=== PATIENT | female | born 1995 | race Two or more races ===

== ENCOUNTER 2023-08-08 15:17 | Emergency (ER) | payer MEDICAID ==
[2023-08-08 16:19] LABS: Basophils # (auto) 0 10 ^3/uL (0-0.2); Basophils % (auto) 0.1 % (0.0-2.0); Eosinophils # (auto) 0.1 10 ^3/uL (0-0.8); Hematocrit 35.2 % (36.0-46.0); Lymphocytes % (auto) 17.4 % (10.0-50.0); Mean Corpuscular Hemoglobin 30.9 pg (28.0-32.0); Mean Corpuscular Hgb Conc. 34.2 g/dL (32.0-36.0); Mean Corpuscular Volume 90.4 fL (80.0-100.0); Monocytes # (auto) 0.5 10 ^3/uL (0-1.3); Monocytes % (auto) 4.5 % (0.0-12.0); Neutrophils # (auto) 8.9 10 ^3/uL (1.6-8.6); Red Blood Cells 3.89 10^6/uL (4.0-5.20); Red Cell Distribution Width 13.4 % (11.8-14.3); White Blood Cell 11.6 10^3/uL (4.4-10.8)
[2023-08-08 16:37] LABS: Alkaline Phosphatase 65 U/L (46-116); Anion Gap 5 (5-15); Aspartate Aminotransferase < 8 U/L (13-40); Calcium 9.1 mg/dL (8.7-10.4); Carbon Dioxide 24 mmol/L (20-30); Chloride 107 mmol/L (98-107); Glucose 98 mg/dL (74-106); Potassium 3.9 mmol/L (3.5-5.1); Sodium 136 mmol/L (136-145)
[2023-08-08 16:38] LABS: Albumin 4.1 g/dL (3.2-4.8); Bilirubin, Total 0.8 mg/dL (0.2-1.0); Total Protein 6.7 g/dL (5.7-8.2)
[2023-08-08 16:48] LABS: Alanine Aminotransferase < 9 U/L (7-40); BUN/Creatinine Ratio 9.4 (10.0-20.0); Blood Urea Nitrogen < 5 mg/dL (9-23)
[2023-08-08 17:49] LABS: Urine Bacteria FEW /hpf (None Seen); Urine Blood Negative /uL (Negative); Urine Clarity HAZY (Clear); Urine Color Colorless (Yellow); Urine Protein, UAD Negative (Negative); Urine Specific Gravity 1.011 (1.001-1.035); Urine Urobilinogen Normal (Negative); Urine WBC 1 /hpf (0 - 5)
[2023-08-08] MEDS ORDERED: CEFD300C2 PO (19:06)
[2023-08-08 19:30] VITALS: BP 112/59; PULSE 100; RESP 16; TEMP 98.5; O2SAT 99
== END 2023-08-08 19:41 | disposition home or self-care (01) ==
LOC: ER 15:17
DX: O44.22 Partial placenta previa NOS or without hemorrhage, second trimester (principal); O23.42 Unspecified infection of urinary tract in pregnancy, second trimester; Z3A.19 19 weeks gestation of pregnancy
CPT/HCPCS: 36415; 76805; 80053; 81001; 84702; 85025

== ENCOUNTER 2023-09-21 14:33 | Observation (INO) | payer MEDICAID ==
[~2023-09-21 14:33] MED LIST: CEFD300C2 PO
[2023-09-21 16:38] LABS: Basophils # (auto) 0 10 ^3/uL (0-0.2); Basophils % (auto) 0.1 % (0.0-2.0); Eosinophils # (auto) 0.1 10 ^3/uL (0-0.8); Eosinophils % (auto) 1.4 % (0.0-7.0); Hemoglobin 10.1 g/dL (12.2-16.2); Lymphocytes # (auto) 1.6 10 ^3/uL (0.4-5.4); Mean Corpuscular Hemoglobin 29.4 pg (28.0-32.0); Mean Corpuscular Hgb Conc. 33.8 g/dL (32.0-36.0); Mean Corpuscular Volume 86.9 fL (80.0-100.0); Monocytes # (auto) 0.5 10 ^3/uL (0-1.3); Monocytes % (auto) 6.4 % (0.0-12.0); Neutrophils # (auto) 5.8 10 ^3/uL (1.6-8.6); Neutrophils % (auto) 72.1 % (37.0-80.0); Nucleated Red Blood Cells % 0.1 %; Red Blood Cells 3.45 10^6/uL (4.0-5.20); Red Cell Distribution Width 12.9 % (11.8-14.3)
[2023-09-21] MEDS ORDERED: PREN-96 PO (16:39)
[2023-09-21 16:54] LABS: Albumin 3.7 g/dL (3.2-4.8); Alkaline Phosphatase 66 U/L (46-116); Anion Gap 7 (5-15); Aspartate Aminotransferase 10 U/L (13-40); Bilirubin, Total 0.5 mg/dL (0.2-1.0); Calcium 8.2 mg/dL (8.7-10.4); Carbon Dioxide 22 mmol/L (20-30); Chloride 108 mmol/L (98-107); Glucose 108 mg/dL (74-106); Potassium 3.1 mmol/L (3.5-5.1); Sodium 137 mmol/L (136-145)
[2023-09-21 17:00] LABS: Alanine Aminotransferase < 9 U/L (7-40); BUN/Creatinine Ratio 12.5 (10.0-20.0); Blood Urea Nitrogen < 5 mg/dL (9-23)
[2023-09-21] MEDS ORDERED: POTASSIUM CHL 20 Meq TABLET PO ONE (17:15)
== END 2023-09-21 15:33 | disposition home or self-care (01) ==
LOC: UNDOADMOB 14:33 → LDRP 14:33
PROVIDERS: ADMIT Obstetrics & Gynecology; ATTEND Obstetrics & Gynecology
DX: O21.2 Late vomiting of pregnancy (principal); O99.282 Endocrine, nutritional and metabolic diseases complicating pregnancy, second trimester; E87.6 Hypokalemia; O62.9 Abnormality of forces of labor, unspecified; Z3A.25 25 weeks gestation of pregnancy
CPT/HCPCS: 36415; 59025; 80053; 81002; 82948; 82962; 85025; 94760; G0378

== ENCOUNTER 2023-09-23 21:36 | Observation (INO) | payer MEDICAID ==
[~2023-09-23] VITALS: Ht 165.1 cm; Wt 70.8 kg
[~2023-09-23 21:36] MED LIST changes: +PREN-96 PO
[2023-09-23 22:34] LABS: Urine Bacteria FEW /hpf (None Seen); Urine Blood Negative /uL (Negative); Urine Clarity Clear (Clear); Urine Color Colorless (Yellow); Urine Protein, UAD Negative (Negative); Urine Specific Gravity 1.005 (1.001-1.035); Urine Urobilinogen Normal (Negative); Urine WBC 1 /hpf (0 - 5)
[2023-09-23] MEDS ORDERED: LACTATED RINGER'S 1,000 ML IV ONE (22:45)
[2023-09-23 23:36] LABS: Albumin 3.9 g/dL (3.2-4.8); Alkaline Phosphatase 71 U/L (46-116); Anion Gap 5 (5-15); Aspartate Aminotransferase 13 U/L (13-40); Bilirubin, Total 0.7 mg/dL (0.2-1.0); Calcium 8.9 mg/dL (8.7-10.4); Carbon Dioxide 23 mmol/L (20-30); Chloride 109 mmol/L (98-107); Glucose 85 mg/dL (74-106); Sodium 137 mmol/L (136-145); Total Protein 6.5 g/dL (5.7-8.2)
[2023-09-23 23:40] LABS: Alanine Aminotransferase < 9 U/L (7-40); Blood Urea Nitrogen < 5 mg/dL (9-23)
[2023-09-24 01:32] LABS: Vaginal Bacteria Moderate; Vaginal Clue Cells Moderate; Vaginal Epithelial Cells Many; Vaginal Trichomonas Not Present
== END 2023-09-24 02:37 | disposition home or self-care (01) ==
LOC: LDRP 21:36
PROVIDERS: ADMIT Obstetrics & Gynecology; ATTEND Obstetrics & Gynecology
DX: O23.592 Infection of other part of genital tract in pregnancy, second trimester (principal); O21.2 Late vomiting of pregnancy; O44.03 Complete placenta previa NOS or without hemorrhage, third trimester; O26.892 Other specified pregnancy related conditions, second trimester; N89.8 Other specified noninflammatory disorders of vagina; R10.30 Lower abdominal pain, unspecified; B96.89 Other specified bacterial agents as the cause of diseases classified elsewhere; Z3A.25 25 weeks gestation of pregnancy
CPT/HCPCS: 36415; 59025; 80053; 81001; 81002; 87086; 87210; 94760; 96360; 96361; G0378

== ENCOUNTER 2023-10-08 05:20 | Observation (INO) | payer MEDICAID ==
[~2023-10-08] VITALS: Ht 167.6 cm; Wt 72.6 kg
[2023-10-08] MEDS ORDERED: LACTATED RINGER'S 1,000 ML IV ONE (06:30)
[2023-10-08] MEDS ORDERED: TERBUTALINE SULFATE 1 MG/ML 1ML VIAL SC SCH (06:30)
[2023-10-08] MEDS ORDERED: CLINDAMYCIN 600MG IV 50 ML IV ONE (06:30)
== END 2023-10-08 08:19 | disposition home or self-care (01) ==
LOC: LDRP 05:20
PROVIDERS: ADMIT Obstetrics & Gynecology; ATTEND Obstetrics & Gynecology
DX: O62.9 Abnormality of forces of labor, unspecified (principal); O26.892 Other specified pregnancy related conditions, second trimester; R10.30 Lower abdominal pain, unspecified; Z3A.27 27 weeks gestation of pregnancy
CPT/HCPCS: 59025; 81002; 94760; 96361; 96372; 96374; G0378; J3105; J3490; 96360

== ENCOUNTER 2023-11-18 18:22 | Observation (INO) | payer MEDICAID ==
[2023-11-18] MEDS ORDERED: ONDANSETRON HCL 4 MG/2 ML VIAL IV PRN (19:15)
[2023-11-18 19:52] LABS: Urine Bacteria FEW /hpf (None Seen); Urine Blood Negative /uL (Negative); Urine Clarity Clear (Clear); Urine Color Yellow (Yellow); Urine Hyaline Cast FEW /lpf (0 - 2); Urine Mucus FEW (None Seen); Urine Protein, UAD TRACE (Negative); Urine Urobilinogen Normal (Negative); Urine WBC 2 /hpf (0 - 5)
[2023-11-18 20:04] LABS: Amphetamine Screen, Urine Neg (NEGATIVE); Benzodiazephine Screen, Urine Neg (NEGATIVE)
[2023-11-18 20:05] LABS: Barbiturate Scree,Urine Neg (NEGATIVE); Cannabinoid Screen, Urine Neg (NEGATIVE); Cocaine Screen, Urine Neg (NEGATIVE); Opiate Scree,Urine Neg (NEGATIVE); Phencyclidine Screen, Urine Neg (NEGATIVE)
[2023-11-18] MEDS: LACTATED RINGER'S 1,000 ML IV ONE ×2 (20:21→23:01)
[2023-11-18] MEDS ORDERED: LACTATED RINGER'S 1,000 ML IV SCH (21:30)
[2023-11-18] MEDS ORDERED: NIFEdipine 10 MG CAP PO ONE (21:30)
[2023-11-18] MEDS ORDERED: BETAMETHASONE ACET (30mg/5ml) 5ml Vial 6mg/ml IM ONE (21:45)
[2023-11-18] MEDS ORDERED: TERBUTALINE SULFATE 1 MG/ML 1ML VIAL SC SCH (21:45)
[2023-11-18 23:02] LABS: Basophils # (auto) 0 10 ^3/uL (0-0.2); Eosinophils # (auto) 0 10 ^3/uL (0-0.8); Monocytes # (auto) 0.7 10 ^3/uL (0-1.3); Red Cell Distribution Width 15.3 % (11.8-14.3)
[2023-11-18 23:04] LABS: Eosinophils % (auto) 0.1 % (0.0-7.0); Hematocrit 25.8 % (36.0-46.0); Hemoglobin 8.7 g/dL (12.2-16.2); Lymphocytes # (auto) 0.4 10 ^3/uL (0.4-5.4); Lymphocytes % (auto) 5.6 % (10.0-50.0); Mean Corpuscular Hemoglobin 26.5 pg (28.0-32.0); Mean Corpuscular Hgb Conc. 33.6 g/dL (32.0-36.0); Monocytes % (auto) 9.3 % (0.0-12.0); Neutrophils # (auto) 6.5 10 ^3/uL (1.6-8.6); Nucleated Red Blood Cells % 0.2 %; Red Blood Cells 3.27 10^6/uL (4.0-5.20); White Blood Cell 7.7 10^3/uL (4.4-10.8)
[2023-11-18 23:21] LABS: Vaginal Bacteria Moderate; Vaginal Clue Cells Moderate; Vaginal Epithelial Cells Many; Vaginal Trichomonas Not Present
[2023-11-19] MEDS ORDERED: ACETAMINOPHEN 500 MG TAB PO ONE (00:30)
[2023-11-19] MEDS ORDERED: FERR-7 PO ×2 (21:54)
[2023-11-19] MEDS ORDERED: ZOFR4T PO ×2 (21:54)
== END 2023-11-19 02:17 | disposition home or self-care (01) ==
LOC: LDRP 18:22
PROVIDERS: ADMIT Obstetrics & Gynecology; ATTEND Obstetrics & Gynecology
DX: O99.013 Anemia complicating pregnancy, third trimester (principal); O60.03 Preterm labor without delivery, third trimester; O23.593 Infection of other part of genital tract in pregnancy, third trimester; O21.2 Late vomiting of pregnancy; O26.893 Other specified pregnancy related conditions, third trimester; R07.89 Other chest pain; D64.9 Anemia, unspecified; Z79.899 Other long term (current) drug therapy; Z3A.33 33 weeks gestation of pregnancy
CPT/HCPCS: 36415; 59025; 76817; 76818; 80307; 81001; 81002; 85025; 87086; 87210; 93005; 94760; 96361; 96372; 96374; G0378; J0702; J2405; 96360

== ENCOUNTER 2023-11-19 20:10 | Observation (INO) | payer MEDICAID ==
[~2023-11-19] VITALS: Ht 59.1 cm; Wt 87.1 kg
[2023-11-19] MEDS ORDERED: BETAMETHASONE ACET (30mg/5ml) 5ml Vial 6mg/ml IM ONE (20:30)
[2023-11-19] MEDS ORDERED: FERR-7 PO ×2 (21:54)
[2023-11-19] MEDS ORDERED: ZOFR4T PO ×2 (21:54)
== END 2023-11-19 22:07 | disposition home or self-care (01) ==
LOC: LDRP 20:10
PROVIDERS: ADMIT Obstetrics & Gynecology; ATTEND Obstetrics & Gynecology
DX: O60.03 Preterm labor without delivery, third trimester (principal); O62.9 Abnormality of forces of labor, unspecified; O26.893 Other specified pregnancy related conditions, third trimester; R05.9 Cough, unspecified; M54.9 Dorsalgia, unspecified; R09.81 Nasal congestion; Z3A.33 33 weeks gestation of pregnancy; Z88.1 Allergy status to other antibiotic agents
CPT/HCPCS: 59025; 81002; 94760; 96372; G0378

== ENCOUNTER 2023-11-26 10:47 | Observation (INO) | payer MEDICAID ==
[~2023-11-26 10:47] MED LIST changes: +FERR-7 PO; +ZOFR4T PO
[2023-11-26] MEDS ORDERED: NIF10C PO (14:18)
== END 2023-11-26 14:30 | disposition home or self-care (01) ==
LOC: UNDOADMOB 13:20 → LDRP 13:20
PROVIDERS: ADMIT Obstetrics & Gynecology; ATTEND Obstetrics & Gynecology
DX: O47.03 False labor before 37 completed weeks of gestation, third trimester (principal); O69.81X0 Labor and delivery complicated by cord around neck, without compression, not applicable or unspecified; Z3A.34 34 weeks gestation of pregnancy
CPT/HCPCS: 76817; 76818; G0378

== ENCOUNTER 2023-12-16 02:58 | Observation (INO) | payer MEDICAID ==
[~2023-12-16 02:58] MED LIST changes: +NIF10C PO
== END 2023-12-16 04:31 | disposition home or self-care (01) ==
LOC: LDRP 02:58
PROVIDERS: ADMIT Obstetrics & Gynecology; ATTEND Obstetrics & Gynecology
DX: O62.9 Abnormality of forces of labor, unspecified (principal); Z3A.37 37 weeks gestation of pregnancy; Z88.1 Allergy status to other antibiotic agents
CPT/HCPCS: 59025; 81002; 94760; G0378

== ENCOUNTER 2023-12-17 13:45 | Observation (INO) | payer MEDICAID ==
[~2023-12-17 13:45] MED LIST changes: -NIF10C PO; -ZOFR4T PO
[2023-12-17 15:05] LABS: Urine Bacteria FEW /hpf (None Seen); Urine Blood Negative /uL (Negative); Urine Clarity HAZY (Clear); Urine Color Yellow (Yellow); Urine Hyaline Cast FEW /lpf (0 - 2); Urine Mucus FEW (None Seen); Urine Protein, UAD 1+ (Negative); Urine Specific Gravity 1.021 (1.001-1.035); Urine Urobilinogen Normal (Negative); Urine WBC 24 /hpf (0 - 5)
[2023-12-17 15:11] LABS: Protein, Urine 45.8 mg/dL (0.0-11.9)
[2023-12-17 15:13] LABS: Creatinine, Urine 157.18 mg/dL (30.0-125.0); Urine Protein/Creatinine Ratio 0.29
[2023-12-17 15:15] LABS: Protein, Urine 10.2 mg/dL (0.0-11.9)
[2023-12-17 15:58] LABS: 24 Hr. Total Protein, Urine 234.6 mg/24 Hr (<149.1)
== END 2023-12-17 15:06 | disposition home or self-care (01) ==
LOC: UNDOADMOB 13:45 → LDRP 13:45
PROVIDERS: ADMIT Obstetrics & Gynecology; ATTEND Obstetrics & Gynecology
DX: O13.3 Gestational [pregnancy-induced] hypertension without significant proteinuria, third trimester (principal); O62.9 Abnormality of forces of labor, unspecified; Z3A.37 37 weeks gestation of pregnancy
CPT/HCPCS: 59025; 76818; 81001; 81002; 82570; 84156; 94760; G0378

== ENCOUNTER 2023-12-21 17:50 | Observation (INO) | payer MEDICAID ==
[~2023-12-21] VITALS: Ht 165.1 cm; Wt 74.4 kg
[2023-12-21] MEDS ORDERED: ZOFR4T PO (18:29)
[2023-12-21] MEDS ORDERED: ASPI-543 PO (18:29)
== END 2023-12-21 19:44 | disposition home or self-care (01) ==
LOC: LDRP 17:50
PROVIDERS: ADMIT Obstetrics & Gynecology; ATTEND Obstetrics & Gynecology
DX: O47.1 False labor at or after 37 completed weeks of gestation (principal); Z3A.38 38 weeks gestation of pregnancy; Z88.1 Allergy status to other antibiotic agents
CPT/HCPCS: 59025; 81002; 94760; G0378

== ENCOUNTER 2023-12-22 09:30 | Inpatient (IN) | payer MEDICAID ==
[~2023-12-22] VITALS: Ht 157.5 cm; Wt 70.8 kg
[~2023-12-22 09:30] MED LIST changes: +ASPI-543 PO; +ZOFR4T PO
[2023-12-22] MEDS ORDERED: WITCH HAZEL-GLYCERIN PAD TOP PRN (10:15)
[2023-12-22] MEDS ORDERED: BUTORPHANOL TARTRATE 2 MG/1 ML VIAL IV PRN ×2 (10:15)
[2023-12-22] MEDS ORDERED: LIDOCAINE 2%HCL (LOCAL ANESTH.) INJ 20ML MDV IJ PRN (10:15)
[2023-12-22] MEDS ORDERED: DERMOPLAST 60ML BOTTLE TOP PRN (10:15)
[2023-12-22] MEDS ORDERED: PHISODERM TOP SOLN 240ML BTL TOP PRN (10:15)
[2023-12-22] MEDS ORDERED: LACTATED RINGER'S 1,000 ML IV ONE (10:30)
[2023-12-22] MEDS ORDERED: ePHEDrine SULFATE 50 MG/ML AMP IV ONE (10:30)
[2023-12-22 10:36] LABS: Basophils # (auto) 0 10 ^3/uL (0-0.2); Basophils % (auto) 0.2 % (0.0-2.0); Eosinophils # (auto) 0.1 10 ^3/uL (0-0.8); Eosinophils % (auto) 0.9 % (0.0-7.0); Hematocrit 33.2 % (36.0-46.0); Hemoglobin 10.6 g/dL (12.2-16.2); Lymphocytes # (auto) 2.6 10 ^3/uL (0.4-5.4); Lymphocytes % (auto) 24.1 % (10.0-50.0); Mean Corpuscular Hemoglobin 24.1 pg (28.0-32.0); Mean Corpuscular Volume 75.1 fL (80.0-100.0); Monocytes # (auto) 0.9 10 ^3/uL (0-1.3); Monocytes % (auto) 8.6 % (0.0-12.0); Neutrophils # (auto) 7.2 10 ^3/uL (1.6-8.6); Neutrophils % (auto) 66.2 % (37.0-80.0); Red Blood Cells 4.42 10^6/uL (4.0-5.20); Red Cell Distribution Width 17.6 % (11.8-14.3); White Blood Cell 10.9 10^3/uL (4.4-10.8)
[2023-12-22 10:52] LABS: INR 0.96 (0.9-1.15); Partial Thromboplastin Time 29.1 SEC (24.5-34.5); Prothrombin Time 10.1 sec (9.3-11.8)
[2023-12-22 10:55] LABS: Albumin 3.9 g/dL (3.2-4.8); Alkaline Phosphatase 189 U/L (46-116); Anion Gap 10 (5-15); Aspartate Aminotransferase 13 U/L (13-40); Calcium 9.2 mg/dL (8.7-10.4); Carbon Dioxide 22 mmol/L (20-30); Chloride 106 mmol/L (98-107); Glucose 85 mg/dL (74-106); Potassium 3.3 mmol/L (3.5-5.1); Sodium 138 mmol/L (136-145); Uric Acid 3.2 mg/dL (3.1-7.8)
[2023-12-22 10:56] LABS: Alanine Aminotransferase < 9 U/L (7-40); BUN/Creatinine Ratio 11.6 (10.0-20.0); Bilirubin, Total 0.7 mg/dL (0.2-1.0); Blood Urea Nitrogen < 5 mg/dL (9-23); Total Protein 6.8 g/dL (5.7-8.2)
[2023-12-22 10:58] LABS: Urine Bacteria FEW /hpf (None Seen); Urine Blood Negative /uL (Negative); Urine Clarity HAZY (Clear); Urine Color Colorless (Yellow); Urine Protein, UAD Negative (Negative); Urine Specific Gravity 1.007 (1.001-1.035); Urine Urobilinogen Normal (Negative); Urine WBC 10 /hpf (0 - 5); Urine pH 6.5 (5.0-8.0)
[2023-12-22 11:14] LABS: Protein, Urine 7.9 mg/dL (0.0-11.9)
[2023-12-22 11:16] LABS: Amphetamine Screen, Urine Neg (NEGATIVE); Barbiturate Scree,Urine Neg (NEGATIVE); Benzodiazephine Screen, Urine Neg (NEGATIVE); Cocaine Screen, Urine Neg (NEGATIVE); Creatinine, Urine 36.03 mg/dL (30.0-125.0); Opiate Scree,Urine Neg (NEGATIVE); Phencyclidine Screen, Urine Neg (NEGATIVE); Urine Protein/Creatinine Ratio 0.22
[2023-12-22] MEDS: LACTATED RINGER'S 1,000 ML IV SCH (11:16)
[2023-12-22 11:17] LABS: Cannabinoid Screen, Urine Neg (NEGATIVE)
[2023-12-22] MEDS: ROPIVACAINE HCL 200 ML ONE (11:26)
[2023-12-22] MEDS: LACT. RINGERS/OXYTOCIN 20UNITS 1,000 ML IV SCH (12:01)
[2023-12-22] MEDS: LACT. RINGERS/OXYTOCIN 20UNITS 500 ML IV ONE ×2 (12:06→13:44)
[2023-12-22] MEDS: METHYLERGONOVINE MALEATE 0.2 MG/ML AMP IM ONE (13:43)
[2023-12-22] MEDS ORDERED: ONDANSETRON ODT 4 MG TAB PO PRN (13:45)
[2023-12-22 14:20] VITALS: RESP 16; O2SAT 98
[2023-12-22 15:30] VITALS: BP 116/68; PULSE 86; RESP 18; TEMP 98.2
[2023-12-22 16:05] VITALS: PULSE 86; RESP 16; O2SAT 98
[2023-12-22] MEDS: ACETAMINOPHEN 325 MG TAB PO PRN (16:46)
[2023-12-22] MEDS: IBUPROFEN 600 MG TAB PO PRN (18:00)
[2023-12-22 19:00] VITALS: BP 114/74; PULSE 74; RESP 20; TEMP 98.1; O2SAT 99
[2023-12-22] MEDS ORDERED: DOCUSATE SOD 100 MG CAP PO SCH (22:00)
[2023-12-22 23:10] VITALS: BP 116/71; PULSE 79; RESP 17; TEMP 98.2; O2SAT 99
[2023-12-23 03:00] VITALS: BP 115/57; PULSE 72; RESP 18; TEMP 98.5; O2SAT 99
[2023-12-23 07:10] VITALS: BP 117/58; PULSE 83; RESP 16; TEMP 98.1; O2SAT 97
[2023-12-23] MEDS: POTASSIUM CHL 20 Meq TABLET PO ONE (08:47)
[2023-12-23 11:20] VITALS: BP 105/58; PULSE 89; RESP 16; TEMP 98.4; O2SAT 98
[2023-12-23 14:41] VITALS: BP 117/71; PULSE 78; RESP 18; TEMP 98.5; O2SAT 98
[2023-12-23 15:00] VITALS: BP 117/71; PULSE 78; RESP 18; TEMP 98.5; O2SAT 98
[2023-12-25 05:08] LABS: RPR Non Reactive (Non Reactive)
== END 2023-12-23 15:00 | disposition home or self-care (01) | DRG 560 ==
LOC: LDRP 09:30 → OBSVTOIN 10:05 → LDRP 16:10
PROVIDERS: ADMIT Obstetrics & Gynecology; ATTEND Obstetrics & Gynecology
PROC: 10D07Z6 Extraction of Products of Conception, Vacuum, Via Natural or Artificial Opening (ICD-10-PCS; principal; 2023-12-22)
PROC: 3E0S3BZ Introduction of Anesthetic Agent into Epidural Space, Percutaneous Approach (ICD-10-PCS; 2023-12-22)
PROC: 00HU33Z Insertion of Infusion Device into Spinal Canal, Percutaneous Approach (ICD-10-PCS; 2023-12-22)
PROC: 0KQM0ZZ Repair Perineum Muscle, Open Approach (ICD-10-PCS; 2023-12-22)
PROC: 0W8NXZZ Division of Female Perineum, External Approach (ICD-10-PCS; 2023-12-22)
DX: O60.14X0 Preterm labor third trimester with preterm delivery third trimester, not applicable or unspecified (principal); Z37.0 Single live birth; O69.81X0 Labor and delivery complicated by cord around neck, without compression, not applicable or unspecified; O70.1 Second degree perineal laceration during delivery; Z3A.38 38 weeks gestation of pregnancy
CPT/HCPCS: 36415; 59025; 59409; 62282; 80053; 80307; 81001; 81002; 82570; 84156; 84550; 85025; 85610; 85730; 86592; 86850; 86900; 86901; 94760; 96365; 96372; G0378; J2590

== ENCOUNTER 2023-12-26 22:31 | Emergency (ER) | payer MEDICAID ==
[~2023-12-26] VITALS: Ht 165.1 cm; Wt 74.1 kg
[2023-12-26 23:59] LABS: Urine Bacteria NONE SEEN /hpf (None Seen); Urine Blood 3+ /uL (Negative); Urine Clarity HAZY (Clear); Urine Color Yellow (Yellow); Urine Mucus FEW (None Seen); Urine Protein, UAD TRACE (Negative); Urine Specific Gravity 1.025 (1.001-1.035); Urine WBC 179 /hpf (0 - 5)
[2023-12-27 00:21] VITALS: BP 147/84; PULSE 56; RESP 20; O2SAT 99
[2023-12-27 00:42] LABS: Basophils # (auto) 0 10 ^3/uL (0-0.2); Basophils % (auto) 0.4 % (0.0-2.0); Eosinophils # (auto) 0.2 10 ^3/uL (0-0.8); Eosinophils % (auto) 2.3 % (0.0-7.0); Hematocrit 29.5 % (36.0-46.0); Hemoglobin 9.5 g/dL (12.2-16.2); Lymphocytes # (auto) 2.4 10 ^3/uL (0.4-5.4); Lymphocytes % (auto) 23.8 % (10.0-50.0); Mean Corpuscular Hemoglobin 24.3 pg (28.0-32.0); Mean Corpuscular Hgb Conc. 32.1 g/dL (32.0-36.0); Mean Corpuscular Volume 75.7 fL (80.0-100.0); Monocytes # (auto) 0.6 10 ^3/uL (0-1.3); Monocytes % (auto) 5.8 % (0.0-12.0); Neutrophils % (auto) 67.7 % (37.0-80.0); Red Cell Distribution Width 17.4 % (11.8-14.3); White Blood Cell 10.3 10^3/uL (4.4-10.8)
[2023-12-27 00:58] LABS: Alanine Aminotransferase 16 U/L (7-40); Albumin 3.8 g/dL (3.2-4.8); Alkaline Phosphatase 143 U/L (46-116); Anion Gap 7 (5-15); Aspartate Aminotransferase 23 U/L (13-40); BUN/Creatinine Ratio 12.2 (10.0-20.0); Blood Urea Nitrogen 6 mg/dL (9-23); Calcium 8.7 mg/dL (8.7-10.4); Carbon Dioxide 23 mmol/L (20-30); Chloride 112 mmol/L (98-107); Glucose 80 mg/dL (74-106); Sodium 142 mmol/L (136-145)
[2023-12-27 00:59] LABS: Bilirubin, Total 0.4 mg/dL (0.2-1.0); Total Protein 6.5 g/dL (5.7-8.2)
== END 2023-12-27 01:29 | disposition home or self-care (01) ==
LOC: ER 22:31
DX: R51.9 Headache, unspecified (principal); I10 Essential (primary) hypertension
CPT/HCPCS: 36415; 80053; 81001; 85025